=== PATIENT | male | born 1970 | race Caucasian/White ===

== ENCOUNTER → 2025-02-20 | Outpatient (CLI) | payer OTHER, SELFPAY ==
--- NOTE | 2025-02-20 15:30 | XR_ITS ---
EXAMINATION: Ultrasound soft tissue extremity right wrist TECHNIQUE: Grayscale sonographic images soft tissue right wrist Date and time: February 20, 2025, 1517 hours INDICATIONS: Right wrist pain and lump on the wrist noticed 1 month ago FINDINGS: Soft tissue mass at the area of concern right breast 8 x 3 x 9 mm IMPRESSION: Circumscribed soft tissue mass at the area of concern right wrist 8 x 3 x 9 mm, consider MRI hand without contrast follow-up
== END | disposition home or self-care (01) ==
LOC: CDIM 15:05
PROVIDERS: PCP Internal Medicine; Referring Provider Internal Medicine; Visit Provider Internal Medicine
DX: R22.31 Localized swelling, mass and lump, right upper limb (principal)
CPT/HCPCS: 76882

== ENCOUNTER → 2025-04-01 | Outpatient (CLI) | payer OTHER, SELFPAY ==
--- NOTE | 2025-04-01 13:45 | XR_ITS ---
Examination: MRI right wrist without contrast Date and time of exam: April 01, 2025, 1442 hours INDICATIONS: Palpable lump in the dorsum of the wrist first metatarsal area 2 months Technique: Multiple MRI axial and sagittal sections lumbar spine. Sagittal T2-weighted images, TR 3500, TE 118 T1 weighted transverse sections, TR 688 T8.5, T2-weighted sagittal sections T1 weighted sagittal sections TR 621, TE 30 T2 axial sections, TR 4, 190, TE 84. 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
== END | disposition home or self-care (01) ==
PROVIDERS: Referring Provider Internal Medicine; Visit Provider Internal Medicine
DX: M19.031 Primary osteoarthritis, right wrist (principal); R60.9 Edema, unspecified
CPT/HCPCS: 73221